=== PATIENT | male | born 1985 | race Two or more races ===

== ENCOUNTER 2020-06-18 16:45 | Emergency (ER) | payer SELFPAY ==
[~2020-06-18] VITALS: Ht 175.3 cm; Wt 113.4 kg
[2020-06-18] MEDS ORDERED: cefTRIAXone 1GM/50ML D5W 50 ML IV ONE (17:15)
[2020-06-18] MEDS ORDERED: BUPIVACAINE W/ EPINEPH 0.5% MPF 30ML VIAL IJ ONE (17:15)
[2020-06-18] MEDS ORDERED: TETANUS-DIPTH-ACEL PERTUSSIS 0.5ML SYR Tdap IM ONE (17:15)
[2020-06-18] MEDS ORDERED: BUPIVACAINE 0.5% P/F INJ 10 ML VIAL ONE (18:13)
[2020-06-18] MEDS ORDERED: BUPIVACAINE 0.5% MPF INJ 30ML SDV IJ ONE (18:18)
[2020-06-18] MEDS ORDERED: BUPIVACAINE W/ EPINEPH 0.25% INJ 50ML MDV ID ONE (19:00)
[2020-06-18 19:45] VITALS: BP 119/68
[2020-06-18] MEDS ORDERED: BACITRACIN TOP OINT 1 UD PKG TOP ONE (20:00)
== END 2020-06-18 20:43 | disposition home or self-care (01) ==
LOC: ER 16:47
DX: S62.632A Displaced fracture of distal phalanx of right middle finger, initial encounter for closed fracture (principal); S61.212A Laceration without foreign body of right middle finger without damage to nail, initial encounter; X58.XXXA Exposure to other specified factors, initial encounter; Y93.9 Activity, unspecified; Y92.89 Other specified places as the place of occurrence of the external cause; Y99.8 Other external cause status
CPT/HCPCS: 12002; 73130; 90471; 90715; 96365; 99284; J0696; J3490